=== PATIENT | male | born 1960 | race Caucasian/White ===

== ENCOUNTER 2019-11-08 20:14 | Emergency (ER) | payer OTHER ==
[2019-11-08 20:23] VITALS: BP 142/84; PULSE 88; TEMP 98.3; BMI 37.2
--- NOTE | 2019-11-08 20:41 | PDOC ---
History of Present Illness - General Chief Complaint: Wound Stated Complaint: FOOT WOUND Time Seen by Provider: 11/08/19 20:40 - History of Present Illness Initial Comments: 11/08/19 21:20 59 y/o M hx of HTn, HLD, IDDM,peripheral neuropathy. presents to the ER with a callus on his right foot. He has had it for 3 months and it has been getting larger. Pt has had increased pain with walking or putting weight on his right foot He denies any associated fevers, chills, pus draining from wound. Past History - Past Medical History Allergies/Adverse Reactions: Allergies Allergy/AdvReac Type Severity Reaction Status Date / Time No Known Allergies Allergy Verified 11/08/19 20:23 COPD: No Diabetes: Yes HTN: Yes Hypercholesterolemia: Yes - Psycho Social/Smoking Cessation Hx Smoking History: Never smoked Review of Systems - Review of Systems Constitutional: No: Chills, Fever HEENTM: Yes: Ocular Prothesis. No: Hearing Loss, Throat Pain Respiratory: No: Cough, Shortness of Breath Cardiac (ROS): No: Chest Pain, Lightheadedness ABD/GI: No: Nausea, Vomiting : No: Burning, Dysuria Musculoskeletal: No: Back Pain, Joint Pain Integumentary: No: Flushing, Sweating Neurological: No: Headache, Seizure *Physical Exam - Vital Signs Last Vital Signs Temp Pulse Resp BP Pulse Ox 98.3 F 88 19 142/84 97 11/08/19 20:17 11/08/19 20:17 11/08/19 20:17 11/08/19 20:17 11/08/19 20:17 - Physical Exam 11/08/19 21:18 GENERAL: Awake, alert, and fully oriented, in no acute distress HEAD: No signs of trauma, normocephalic, atraumatic EYES: PERRLA, EOMI, sclera anicteric, conjunctiva clear ENT: Auricles normal inspection, hearing grossly normal, nares patent, oropharynx clear without exudates. Moist mucosa NECK: Normal ROM, supple, no lymphadenopathy, JVD, or masses LUNGS: No distress, speaks full sentences, clear to auscultation bilaterally HEART: Regular rate and rhythm, normal S1 and S2, no murmurs, rubs or gallops, peripheral pulses normal and equal bilaterally. ABDOMEN: Soft, nontender, normoactive bowel sounds. No guarding, no rebound. No masses EXTREMITIES : Normal range of motion, no edema. No clubbing or cyanosis. callus with central hyperpigmentation on bony prominence of 5th metatarsal no blood, pus or other fluid discharge or erythema noted. 1+pulses bilaterally. 2 sec capillary refill. . NEUROLOGICAL: Cranial nerves II through XII grossly intact. Normal speech,no focal sensorimotor deficits SKIN: Warm, Dry, normal turgor, no rashes or lesions noted Medical Decision Making - Medical Decision Making 11/08/19 21:34 59 y/o M hx of HTn, HLD, IDDM,peripheral neuropathy. Pt has been given podiatry referral to address callus PT declined basic labs to check for remote possibility of infection No ulcer/discharge present at the site. can follow up with podiatry outpatient. Discharge - Discharge Information Problems reviewed: Yes Clinical Impression/Diagnosis: Callus of foot Condition: Stable Disposition: HOME - Admission No - Follow up/Referral Referrals: Jose David Patiño MD [Staff Physician] - Sandra Marie DPM [Staff Physician] - Caesar Desai DPM [Staff Physician] - Marsha Tyler DPM [Non Staff, Medical] - - Patient Discharge Instructions Patient Printed Discharge Instructions: DI for Diabetic Foot Ulcer, DI for Calluses and Corns Additional Instructions: You were seen in the ER for a callus on your right foot. you have been given referall information for a psychologist research assistant/foot care Your care is not complete until you do so . It is important that you check your feet daily for redness, sores, or openings. If you develop these signs/symptoms do not self-treat. Please, follow-up with a psychologist research assistant (foot doctor) or your primary care doctor RETURN TO THE ER -if your symptoms today worsen. You develop fevers, chills, callus gets worse and becomes an open wound. - Post Discharge Activity
--- NOTE | 2019-11-08 21:45 | PDOC ---
Documentation entered by Jennifer Grubbs SCRIBE, acting as scribe for Christina Diaz MD. Christina Diaz MD: This documentation has been prepared by the edisonibe, Jennifer Grubbs SCRIBE, under my direction and personally reviewed by me in its entirety. I confirm that the documentation accurately reflects all work, treatment, procedures, and medical decision making performed by me. Attending Attestation - Resident Resident Name: HersonClara - ED Attending Attestation I have performed the following: I have examined & evaluated the patient, The case was reviewed & discussed with the resident, I agree w/resident's findings & plan, Exceptions are as noted - HPI HPI: 11/08/19 21:24 The patient is a 59-year-old male with a past medical history significant for Type 2 DM, HTN, HLD, who presents to the emergency department with a right foot wound. The patient reports a wound to the bottom of the right foot, which has been ongoing for the past 3 months. Denies fever or chills. Denies any drainage from the wound. The patient's daughter brought the patient to the ER for further management and referrals. Allergies: NKA Social history: no reported use of tobacco. PCP: Dr. Cruz Cerna. - Physicial Exam PE: 11/08/19 21:27 GENERAL: Awake, alert and oriented. The patient is in no acute distress. ENT: Ears normal, nares patent, oropharynx clear without exudates. Moist mucous membranes. NECK: Normal range of motion, supple, no nuchal rigidity LUNGS: Breath sounds equal, clear to auscultation bilaterally. No wheezes, and no crackles. HEART: Regular rate and rhythm, normal S1 and S2 without murmur, rub or gallop. ABDOMEN: Soft, nontender, normoactive bowel sounds. No guarding, no rebound. No masses palpable. EXTREMITIES: Foot: Warm, Cap refill <2 sec, 1+DP and 1+PT, Sensation intact, plantar surface of the foot there is 2cm in diameter callus with no sign of infection, no drainage or erythematous skin. NEUROLOGICAL: Answering all questions. Cranial nerves II through XII grossly intact. Normal speech. No focal neurological deficits. SKIN: Warm, Dry, normal turgor, no rashes or lesions noted. - Medical Decision Making 11/08/19 21:32 59-year-old male, history of diabetes presenting to the emergency department with a complaint of callus on the bottom of the right foot the patient has had this for the past 3 months No trauma to the foot Pt denies fevers, chills, drainage Pt daughter brought him to the ER to get a referral No one wants us to send labs, do an xray or call podiatry now They would rather follow up Pt told that he would benefit greatly from shoes with orthotics AND from treatment with a conveyor line battery charger clinical impression: Callus, initial presentation (not acutely infected) Peripheral neuropathy, initial presentation
== END 2019-11-08 21:51 | disposition home or self-care (01) ==
LOC: SUPCPDRO 20:14 → JER 20:14
DX: L84 Corns and callosities (principal); I10 Essential (primary) hypertension; E11.9 Type 2 diabetes mellitus without complications; Z79.4 Long term (current) use of insulin; E78.5 Hyperlipidemia, unspecified; G62.9 Polyneuropathy, unspecified
CPT/HCPCS: 99281-25

== ENCOUNTER 2019-11-10 17:31 | Inpatient (IN) | payer OTHER ==
--- NOTE | 2019-11-10 17:42 | PDOC ---
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
[2019-11-10 18:59] LABS: BASO % 0.5 % (0-2.0); EOS % 0.5 % (0-4.5); HEMATOCRIT 35.7 % (35.4-49); HEMOGLOBIN 11.7 GM/dL (11.7-16.9); LYMPH % 13.6 % (8-40); MCH 28.6 pg (25.7-33.7); MCHC 32.9 g/dl (32.0-35.9); MEAN CELL VOLUME 87.1 fl (80-96); MEAN PLT VOLUME 9.4 fl (7.5-11.1); MONO % 7.4 % (3.8-10.2); PLATELET COUNT 259 K/MM3 (134-434); RBC 4.09 M/mm3 (4.00-5.60); RDW 13.3 % (11.9-15.9); WHITE BLOOD COUNT 12.9 K/mm3 (4.0-10.0)
[2019-11-10 19:38] LABS: ALBUMIN 3.4 g/dl (3.4-5.0); BILIRUBIN,TOTAL 0.8 mg/dL (0.2-1); BLOOD UREA NITROGEN 27.1 mg/dL (7-18); CALCIUM 8.3 mg/dL (8.5-10.1); CREATININE 1.7 mg/dL (0.55-1.3); POTASSIUM 4.4 mmol/L (3.5-5.1)
[2019-11-10] MEDS ORDERED: SODIUM CHLORIDE 3,334 ML IV ONE (19:56)
--- NOTE | 2019-11-10 19:57 | PDOC ---
*Physical Exam - Vital Signs Last Vital Signs Temp Pulse Resp BP Pulse Ox 99.0 F 100 H 16 137/76 97 11/10/19 17:37 11/10/19 17:37 11/10/19 17:37 11/10/19 17:37 11/10/19 17:37 ED Treatment Course - LABORATORY CBC & Chemistry Diagram: 11/10/19 18:14 11/10/19 18:14 - ADDITIONAL ORDERS Additional order review: Laboratory Results 11/10/19 11/10/19 18:14 18:14 Sodium 136 Potassium 4.4 Chloride 102 Carbon Dioxide 25 Anion Gap 8 BUN 27.1 H Creatinine 1.7 H Est GFR (CKD-EPI)AfAm 50.05 Est GFR (CKD-EPI)NonAf 43.18 Random Glucose 323 H Lactic Acid 2.8 H* Calcium 8.3 L Total Bilirubin 0.8 AST 6 L ALT 17 Alkaline Phosphatase 81 Total Protein 7.0 Albumin 3.4 11/10/19 18:14 RBC 4.09 MCV 87.1 MCHC 32.9 RDW 13.3 MPV 9.4 Neutrophils % 78.0 Lymphocytes % 13.6 Monocytes % 7.4 Eosinophils % 0.5 Basophils % 0.5 Medical Decision Making - Medical Decision Making 11/10/19 19:56 Patient seen by the advanced practice provider under my direct supervision. Ancillary testing reviewed as necessary. I agree with plan as outlined by the advanced practice provider. Discharge - Discharge Information Problems reviewed: Yes Clinical Impression/Diagnosis: Diabetic foot infection Condition: Stable - Follow up/Referral - Patient Discharge Instructions - Post Discharge Activity
--- NOTE | 2019-11-10 20:34 | PDOC ---
History of Present Illness - General Chief Complaint: Puncture Wound Stated Complaint: DIABETIC/RIGHT FOOT OPEN WOUND Time Seen by Provider: 11/10/19 17:36 History Source: Patient - History of Present Illness Initial Comments: 11/10/19 20:31 59 year old male right foot wound for the last 3 days worsening. denies fever/ chills, nausea, vomiting, abdominal pain, PMHX: diabetes, hypertension, hypercholesteremia, sepsis PSHX: 11/10/19 20:32 11/10/19 21:34 Past History - Past Medical History Allergies/Adverse Reactions: Allergies Allergy/AdvReac Type Severity Reaction Status Date / Time No Known Allergies Allergy Verified 11/08/19 20:23 Home Medications: Ambulatory Orders Amlodipine Besylate 10 mg PO DAILY 11/11/19 Atorvastatin Ca [Lipitor] 10 mg PO HS 11/11/19 Clopidogrel Bisulfate [Clopidogrel] 75 mg PO DAILY 11/11/19 Lisinopril 20 mg PO DAILY 11/11/19 Metformin HCl [Glucophage] 1,000 mg PO BID 11/11/19 Sitagliptin Phosphate [Januvia] 50 mg PO ONCE 11/11/19 COPD: No Diabetes: Yes HTN: Yes Hypercholesterolemia: Yes - Immunization History Immunization Up to Date: No - Psycho Social/Smoking Cessation Hx Smoking History: Never smoked Have you smoked in the past 12 months: No Information on smoking cessation initiated: No Hx Alcohol Use: No Drug/Substance Use Hx: No Review of Systems - Review of Systems Able to Perform ROS?: Yes Is the patient limited Croatian proficient: No Constitutional: No: Symptoms Reported, See HPI, Chills, Diaphoresis, Fever, Loss of Appetite, Malaise, Night Sweats, Weakness, Weight Stable, Unintentional Wgt. Loss, Unexplained wgt Loss, Other Integumentary: Yes: Other (infection) *Physical Exam - Vital Signs Last Vital Signs Temp Pulse Resp BP Pulse Ox 99.0 F 100 H 16 137/76 97 11/10/19 17:37 11/10/19 17:37 11/10/19 17:37 11/10/19 17:37 11/10/19 17:37 - Physical Exam General Appearance: Yes: Appropriately Dressed Respiratory/Chest: positive: Lungs Clear, Normal Breath Sounds Cardiovascular: positive: Regular Rhythm, Regular Rate Extremity: positive: Normal Capillary Refill, Normal Inspection Integumentary: positive: Warm, Erythema, Other (pus filled pocket to sole of right foot, right foot edema with streaking up the leg. ) ED Treatment Course - LABORATORY CBC & Chemistry Diagram: 11/10/19 18:14 11/10/19 18:14 - ADDITIONAL ORDERS Additional order review: Laboratory Results 11/10/19 11/10/19 18:14 18:14 Sodium 136 Potassium 4.4 Chloride 102 Carbon Dioxide 25 Anion Gap 8 BUN 27.1 H Creatinine 1.7 H Est GFR (CKD-EPI)AfAm 50.05 Est GFR (CKD-EPI)NonAf 43.18 Random Glucose 323 H Lactic Acid 2.8 H* Calcium 8.3 L Total Bilirubin 0.8 AST 6 L ALT 17 Alkaline Phosphatase 81 Total Protein 7.0 Albumin 3.4 11/10/19 18:14 RBC 4.09 MCV 87.1 MCHC 32.9 RDW 13.3 MPV 9.4 Neutrophils % 78.0 Lymphocytes % 13.6 Monocytes % 7.4 Eosinophils % 0.5 Basophils % 0.5 - RADIOLOGY Radiology Studies Ordered: Category Date Time Status CHEST - PA [RAD] Stat Radiology 11/10/19 19:56 Taken ED Progress Note - Progress Note Progress Note: 11/10/19 21:35 A: diabetic foot infection cellulitis and abscess P: xray: perisoteal lifting osteo? official read pending cbc cmp blood culture lactic acid 11/10/19 21:36 zosyn vanc patient signed out to Dr. encarnacion for inpatient management of care Discharge - Discharge Information Problems reviewed: Yes Clinical Impression/Diagnosis: Diabetic foot infection Condition: Stable - Admission Yes - Follow up/Referral - Patient Discharge Instructions - Post Discharge Activity
[2019-11-10] MEDS ORDERED: VANCOMYCIN 1 GM in D5W (PRE-DOCKED) 1,000 MG/250 ML IVPB ONE (21:26)
[2019-11-10] MEDS ORDERED: PIPERACILLIN/TAZOBACTAM 4.5 GM VIAL IVPB ONE (21:26)
[2019-11-10] MEDS ORDERED: ACETAMINOPHEN 1000 MG/100 ML VIAL (NON FORMULARY) IVPB ONE (21:36)
--- NOTE | 2019-11-10 21:40 | HP ---
Admitting History and Physical - Primary Care Physician PCP: Ross Em - Admission Chief Complaint: R foot wound History of Present Illness: 59 year old male right foot wound for the last 3 days worsening. denies fever/ chills, nausea, vomiting, abdominal pain, patient is a known diabetic and hypertensive with hypercholosteremia according tot he patient the wound has not healed and changed in color to black and is fluid filled not bothering him much - Past Medical History Cardiovascular: Yes: Hyperlipdemia Endocrine: Yes: Diabetes Mellitus - Smoking History Smoking history: Never smoked Have you smoked in the past 12 months: No - Alcohol/Substance Use Hx Alcohol Use: No Home Medications - Allergies Allergies/Adverse Reactions: Allergies Allergy/AdvReac Type Severity Reaction Status Date / Time No Known Allergies Allergy Verified 11/08/19 20:23 - Home Medications Home Medications: Ambulatory Orders Amlodipine Besylate 10 mg PO DAILY 11/11/19 Atorvastatin Ca [Lipitor] 10 mg PO HS 11/11/19 Clopidogrel Bisulfate [Clopidogrel] 75 mg PO DAILY 11/11/19 Lisinopril 20 mg PO DAILY 11/11/19 Metformin HCl [Glucophage] 1,000 mg PO BID 11/11/19 Sitagliptin Phosphate [Januvia] 50 mg PO ONCE 11/11/19 Physical Examination Vital Signs: Vital Signs Temperature 99.0 F 11/10/19 17:37 Pulse Rate 100 H 11/10/19 17:37 Respiratory Rate 16 11/10/19 17:37 Blood Pressure 137/76 11/10/19 17:37 O2 Sat by Pulse Oximetry (%) 97 11/10/19 17:37 Constitutional: Yes: No Distress HENT: Yes: Atraumatic Neck: Yes: Supple Cardiovascular: Yes: Regular Rate and Rhythm Respiratory: Yes: CTA Bilaterally Gastrointestinal: Yes: Normal Bowel Sounds Extremities: Yes: Other (R foot wound) Edema: RLE: Trace Neurological: Yes: Alert, Oriented Labs: CBC, BMP 11/10/19 18:14 11/10/19 18:14 Imaging - Results X-ray: Report Reviewed Problem List - Problems (1) Diabetes Assessment/Plan: CONTINUE MEDS BGMS Code(s): E11.9 - TYPE 2 DIABETES MELLITUS WITHOUT COMPLICATIONS (2) Diabetic foot infection Assessment/Plan: iv abx id consult Code(s): E11.628 - TYPE 2 DIABETES MELLITUS WITH OTHER SKIN COMPLICATIONS; L08.9 - LOCAL INFECTION OF THE SKIN AND SUBCUTANEOUS TISSUE, UNSP (3) Callus of foot Code(s): L84 - CORNS AND CALLOSITIES Assessment/Plan Laboratory Tests 11/10/19 11/10/19 11/10/19 18:14 18:14 18:14 WBC 12.9 H RBC 4.09 Hgb 11.7 Hct 35.7 MCV 87.1 MCH 28.6 MCHC 32.9 RDW 13.3 Plt Count 259 MPV 9.4 Absolute Neuts (auto) 10.0 H Neutrophils % 78.0 Lymphocytes % 13.6 Monocytes % 7.4 Eosinophils % 0.5 Basophils % 0.5 Nucleated RBC % 0 Sodium 136 Potassium 4.4 Chloride 102 Carbon Dioxide 25 Anion Gap 8 BUN 27.1 H Creatinine 1.7 H Est GFR (CKD-EPI)AfAm 50.05 Est GFR (CKD-EPI)NonAf 43.18 Random Glucose 323 H Lactic Acid 2.8 H* Calcium 8.3 L Total Bilirubin 0.8 AST 6 L ALT 17 Alkaline Phosphatase 81 Troponin I Cancelled Total Protein 7.0 Albumin 3.4 Active Medications Generic Name Dose Route Start Last Admin Trade Name Freq PRN Reason Stop Dose Admin Sodium Chloride 3,334 mls @ 1,667 mls/hr 11/10/19 19:56 11/10/19 20:00 Normal Saline - 30 ml/kg infuse over 2 hr (3334 ml) 11/10/19 21:55 1,667 mls/hr IV Administration ONCE ONE Active Medications Generic Name Dose Route Start Last Admin Trade Name Freq PRN Reason Stop Dose Admin Acetaminophen 650 mg 11/10/19 21:47 Tylenol - PO Q6H PRN FEVER Heparin Sodium (Porcine) 5,000 unit 11/10/19 22:00 11/11/19 09:41 Heparin - SQ 5,000 unit BID JORGE Administration Vancomycin HCl 1,000 mg in 250 mls @ 200 mls/hr 11/11/19 22:00 Vancomycin (Pre-Docked) IVPB Q24H JORGE Protocol Piperacillin Sod/Tazobactam 50 mls @ 100 mls/hr 11/11/19 13:45 11/11/19 17:50 Sod 3.375 gm/ Dextrose IVPB 100 mls/hr Q8H-IV JORGE Administration Protocol Insulin Aspart 1 vial 11/10/19 22:00 11/11/19 17:57 Novolog Vial Sliding Scale - SQ 6 units ACHS JORGE Administration Protocol
[2019-11-10 21:48] LABS: INR 1.08 (0.83-1.09); PROTHROMBIN TIME (PATIENT) 12.8 SEC (9.7-13.0)
[2019-11-10 21:51] LABS: ACTIVATED PTT 34.5 SECONDS (25.2-36.5)
[2019-11-10] MEDS ORDERED: ACETAMINOPHEN INJECTION 100 ML IVPB ONE ×2 (21:56→22:58)
[2019-11-10] MEDS ORDERED: PIPERACILLIN/TAZOB 4.5 GM 4.5 GM/100 ML BAG IVPB ONE (21:56)
[2019-11-10] MEDS ORDERED: VANCOMYCIN 1 GRAM (PRE-DOCKED) 1,000 MG/250 ML BAG IVPB ONE (21:57)
[2019-11-10] MEDS ORDERED: INSULIN (NOVOLOG MIX 70/30) 100 UNITS/ML MDV SQ ONE (22:58)
[2019-11-10] MEDS ORDERED: HEPARIN NA (PORCINE) 5,000 UNITS/ML 1ML VIAL ONE (22:58)
[2019-11-10] MEDS: INSULIN SLIDING SCALE (NOVOLOG) 1 VIAL SQ SCH (23:07)
[2019-11-10] MEDS: HEPARIN NA (PORCINE) 5,000 UNITS/ML 1ML VIAL SQ SCH (23:48)
[2019-11-11 06:31] LABS: BASO % 0.5 % (0-2.0); EOS % 0.4 % (0-4.5); HEMOGLOBIN 10.8 GM/dL (11.7-16.9); LYMPH % 12.9 % (8-40); MCH 29.1 pg (25.7-33.7); MCHC 33.9 g/dl (32.0-35.9); MEAN CELL VOLUME 86.1 fl (80-96); MONO % 6.6 % (3.8-10.2); NEUT % 79.6 % (42.8-82.8); PLATELET COUNT 220 K/MM3 (134-434); RBC 3.72 M/mm3 (4.00-5.60); RDW 13.3 % (11.9-15.9); WHITE BLOOD COUNT 10.9 K/mm3 (4.0-10.0)
[2019-11-11 06:45] LABS: BILIRUBIN,TOTAL 0.6 mg/dL (0.2-1); BLOOD UREA NITROGEN 24.3 mg/dL (7-18); CREATININE 1.4 mg/dL (0.55-1.3); POTASSIUM 4.2 mmol/L (3.5-5.1); TOT PROT 6.4 g/dl (6.4-8.2)
[2019-11-11] MEDS: INSULIN SLIDING SCALE (NOVOLOG) 1 VIAL SQ SCH ×4 (09:35→21:45)
[2019-11-11] MEDS: HEPARIN NA (PORCINE) 5,000 UNITS/ML 1ML VIAL SQ SCH ×2 (09:41→21:45)
--- NOTE | 2019-11-11 11:59 | EKG ---
Test Reason : Blood Pressure : / mmHG Vent. Rate : 091 BPM Atrial Rate : 091 BPM P-R Int : 202 ms QRS Dur : 110 ms QT Int : 338 ms P-R-T Axes : 019 032 036 degrees QTc Int : 415 ms NORMAL SINUS RHYTHM SEPTAL INFARCT , AGE UNDETERMINED ABNORMAL ECG Confirmed by MD COLE, PONCE ([id number]) on 11/11/2019 11:59:05 AM Referred By: Confirmed By:PONCE GALVAN MD
--- NOTE | 2019-11-11 13:34 | CON.ID ---
Consult Consult Specialty:: infectious diseases Referred by:: Reason for Consultation:: foot wound,with collection,discoloration - History of Present Illness Chief Complaint: wound of the leg History of Present Illness: 59 year old male right foot wound for the last 3 days worsening. denies fever/ chills, nausea, vomiting, abdominal pain, patient is a known diabetic and hypertensive with hypercholosteremia according tot he patient the wound has not healed and changed in color to black and is fluid filled not bothering him much - History Source History Provided By: Patient Limitations to Obtaining History: No Limitations - Past Medical History Endocrine: Yes: Diabetes Mellitus - Alcohol/Substance Use Hx Alcohol Use: No - Smoking History Smoking history: Never smoked Have you smoked in the past 12 months: No Home Medications - Allergies Allergies/Adverse Reactions: Allergies Allergy/AdvReac Type Severity Reaction Status Date / Time No Known Allergies Allergy Verified 11/08/19 20:23 - Home Medications Home Medications: Ambulatory Orders Amlodipine Besylate 10 mg PO DAILY 11/11/19 Atorvastatin Ca [Lipitor] 10 mg PO HS 11/11/19 Clopidogrel Bisulfate [Clopidogrel] 75 mg PO DAILY 11/11/19 Lisinopril 20 mg PO DAILY 11/11/19 Metformin HCl [Glucophage] 1,000 mg PO BID 11/11/19 Sitagliptin Phosphate [Januvia] 50 mg PO ONCE 11/11/19 Review of Systems - Review of Systems Constitutional: reports: No Symptoms Eyes: reports: No Symptoms HENT: reports: No Symptoms Neck: reports: No Symptoms Cardiovascular: reports: No Symptoms Respiratory: reports: No Symptoms Gastrointestinal: reports: No Symptoms Genitourinary: reports: No Symptoms Musculoskeletal: reports: No Symptoms Integumentary: reports: Wound, Other Neurological: reports: No Symptoms Endocrine: reports: No Symptoms Hematology/Lymphatic: reports: No Symptoms Psychiatric: reports: No Symptoms Physical Exam Vital Signs: Vital Signs Temperature 99.5 F 11/11/19 07:11 Pulse Rate 87 11/11/19 07:11 Respiratory Rate 11/11/19 07:11 Blood Pressure 123/63 11/11/19 07:11 O2 Sat by Pulse Oximetry (%) 96 11/11/19 07:11 Constitutional: Yes: Well Nourished, No Distress, Calm HENT: Yes: Atraumatic, Normocephalic Neck: Yes: Supple, Trachea Midline Cardiovascular: Yes: Regular Rate and Rhythm Respiratory: Yes: Regular, CTA Bilaterally Gastrointestinal: Yes: Normal Bowel Sounds, Soft Musculoskeletal: Yes: WNL Extremities: Yes: Other Wound/Incision: Yes: Open to air, Other (fluid filled wound of the rt leg) Neurological: Yes: Alert, Oriented Psychiatric: Yes: Alert, Oriented Labs: CBC, BMP 11/11/19 05:30 11/11/19 05:30 Imaging - Results Chest X-ray: Report Reviewed, Image Reviewed X-ray: Report Reviewed, Image Reviewed Assessment/Plan this patient with multiple medical problems coming in wiht diabetic foot infection probably will eed to go to the or i am starting the patient on broad spectrum abx await for podiatry to see the patient rest monitor patient closely
[2019-11-11] MEDS: PIPERACILLIN/TAZOB 3.375 GM 3.375 GM in DEXTROSE 5%-WATER - 50 ML IVPB SCH ×2 (14:30→17:50)
[2019-11-11] MEDS ORDERED: PIPERACILLIN/TAZOB 3.375 GM 3.375 GM/50 ML BAG IVPB ONE (14:31)
[2019-11-11 16:29] VITALS: BMI 34.5
[2019-11-11] MEDS ORDERED: PIPERACILLIN/TAZOBACTAM 3.375 GM VIAL IVPB ONE (17:11)
[2019-11-11] MEDS ORDERED: DEXTROSE 5%-WATER - 50 ML IVPB ONE (17:12)
[2019-11-11] MEDS ORDERED: INSULIN (NOVOLOG) ASPART 100 UNITS/ML 10ML VIAL ONE (17:55)
--- NOTE | 2019-11-11 17:58 | PN ---
Progress Note, Physician - Current Medication List Current Medications: Active Medications Acetaminophen (Tylenol -) 650 mg PO Q6H PRN PRN Reason: FEVER Heparin Sodium (Porcine) (Heparin -) 5,000 unit SQ BID [facility] Last Admin: 11/11/19 09:41 Dose: 5,000 unit Vancomycin HCl (Vancomycin (Pre-Docked)) 1,000 mg in 250 mls @ 200 mls/hr IVPB Q24H JORGE; Protocol Piperacillin Sod/Tazobactam (Sod 3.375 gm/ Dextrose) 50 mls @ 100 mls/hr IVPB Q8H-IV JORGE; Protocol Last Admin: 11/11/19 17:50 Dose: 100 mls/hr Insulin Aspart (Novolog Vial Sliding Scale -) 1 vial SQ ACHS [facility]; Protocol Last Admin: 11/11/19 11:31 Dose: 6 units - Objective Vital Signs: Vital Signs Temperature 96.8 F L 11/11/19 15:15 Pulse Rate 84 11/11/19 15:15 Respiratory Rate 18 11/11/19 15:15 Blood Pressure 135/65 11/11/19 15:15 O2 Sat by Pulse Oximetry (%) 94 L 11/11/19 15:15 Constitutional: Yes: No Distress HENT: Yes: Atraumatic Neck: Yes: Supple Cardiovascular: Yes: Regular Rate and Rhythm Respiratory: Yes: CTA Bilaterally Gastrointestinal: Yes: Normal Bowel Sounds Extremities: Yes: Other (R foot cellulitis) Neurological: Yes: Alert, Oriented Labs: CBC, BMP 11/11/19 05:30 11/11/19 05:30 INR, PTT INR 1.08 (0.83-1.09) 11/10/19 21:00 Problem List - Problems (1) Diabetes Assessment/Plan: CONTINUE MEDS BGMS Code(s): E11.9 - TYPE 2 DIABETES MELLITUS WITHOUT COMPLICATIONS (2) Diabetic foot infection Assessment/Plan: iv bax id consult Code(s): E11.628 - TYPE 2 DIABETES MELLITUS WITH OTHER SKIN COMPLICATIONS; L08.9 - LOCAL INFECTION OF THE SKIN AND SUBCUTANEOUS TISSUE, UNSP (3) Callus of foot Code(s): L84 - CORNS AND CALLOSITIES
[2019-11-11] MEDS: VANCOMYCIN 1 GRAM (PRE-DOCKED) 1,000 MG/250 ML BAG IVPB SCH (21:47)
--- NOTE | 2019-11-11 23:07 | CONS ---
DATE OF CONSULTATION: DATE OF DICTATION: 11/11/2019 HISTORY OF PRESENT ILLNESS: The patient is a 59-year-old male admitted via the emergency room on November 10, 2019, with an infected right foot wound. Patient also has history of diabetes. He denies any allergies, ethanolism, or tobacco use. He presently is on Lipitor, Norvasc, Plavix, lisinopril, metformin, and Januvia. PHYSICAL EXAMINATION: Vital signs: Temperature was 99, his blood pressure was 137/76. Abdomen: Soft. No CVA tenderness. Extremities: Reveal right lower extremity cellulitis. There was some trace edema from right lower extremity. LABORATORY: His white count is 12.9. His hemoglobin and hematocrit is 11.7 over 35.7. BUN and creatinine on admission were 27 over 1.7. An ultrasound of his kidneys and bladder revealed bilateral solid renal masses. There was also an enlarged prostate with a significant amount of post void residual. Solid masses are suspicious for neoplasm. RECOMMENDATION: Will recommend a CT with and without contrast to see enhancement. Will follow with you. CHASITY CHARLES M.D. [id number]
[2019-11-11] MEDS: ACETAMINOPHEN 325 MG TABLET (FP) PO PRN (23:15)
[2019-11-12] MEDS ORDERED: DEXTROSE 5%-WATER - 50 ML IVPB ONE ×3 (01:32→17:13)
[2019-11-12] MEDS ORDERED: PIPERACILLIN/TAZOBACTAM 3.375 GM VIAL IVPB ONE ×3 (01:32→17:13)
[2019-11-12] MEDS: PIPERACILLIN/TAZOB 3.375 GM 3.375 GM in DEXTROSE 5%-WATER - 50 ML IVPB SCH ×3 (01:37→17:18)
[2019-11-12] MEDS: INSULIN SLIDING SCALE (NOVOLOG) 1 VIAL SQ SCH ×4 (06:17→23:02)
--- NOTE | 2019-11-12 09:59 | PN ---
Progress Note, Physician History of Present Illness: clinically stable podiatry to see the patient no complaints - Current Medication List Current Medications: Active Medications Acetaminophen (Tylenol -) 650 mg PO Q6H PRN PRN Reason: FEVER Last Admin: 11/11/19 23:15 Dose: 650 mg Heparin Sodium (Porcine) (Heparin -) 5,000 unit SQ BID [facility] Last Admin: 11/11/19 21:45 Dose: 5,000 unit Vancomycin HCl (Vancomycin (Pre-Docked)) 1,000 mg in 250 mls @ 200 mls/hr IVPB Q24H [facility]; Protocol Last Admin: 11/11/19 21:47 Dose: 200 mls/hr Piperacillin Sod/Tazobactam (Sod 3.375 gm/ Dextrose) 50 mls @ 100 mls/hr IVPB Q8H-IV [facility]; Protocol Last Admin: 11/12/19 01:37 Dose: 100 mls/hr Insulin Aspart (Novolog Vial Sliding Scale -) 1 vial SQ ACHS [facility]; Protocol Last Admin: 11/12/19 06:17 Dose: 6 units - Objective Vital Signs: Vital Signs Temperature 98 F 11/12/19 05:50 Pulse Rate 82 11/12/19 05:50 Respiratory Rate 18 11/12/19 05:50 Blood Pressure 134/76 11/12/19 05:50 O2 Sat by Pulse Oximetry (%) 94 L 11/11/19 21:00 Constitutional: Yes: No Distress, Calm Cardiovascular: Yes: S1, S2 Respiratory: Yes: Regular, CTA Bilaterally Gastrointestinal: Yes: Normal Bowel Sounds, Soft Musculoskeletal: Yes: WNL Extremities: Yes: Other Integumentary: Yes: Other Wound/Incision: Yes: Open to air, Other (fluid collection) Neurological: Yes: Alert, Oriented Psychiatric: Yes: Alert, Oriented Labs: CBC, BMP 11/11/19 05:30 11/11/19 05:30 INR, PTT INR 1.08 (0.83-1.09) 11/10/19 21:00 Assessment/Plan Problem List - Problems (1) Diabetes Code(s): E11.9 - TYPE 2 DIABETES MELLITUS WITHOUT COMPLICATIONS (2) Diabetic foot infection Code(s): E11.628 - TYPE 2 DIABETES MELLITUS WITH OTHER SKIN COMPLICATIONS; L08.9 - LOCAL INFECTION OF THE SKIN AND SUBCUTANEOUS TISSUE, UNSP (3) Callus of foot Code(s): L84 - CORNS AND CALLOSITIES r/o gangrene blister plan await for podiatry continue abx rest as per the team
[2019-11-12] MEDS: HEPARIN NA (PORCINE) 5,000 UNITS/ML 1ML VIAL SQ SCH ×2 (10:33→23:02)
[2019-11-12] MEDS ORDERED: INSULIN (NOVOLOG) ASPART 100 UNITS/ML 10ML VIAL ONE ×2 (12:06→22:57)
--- NOTE | 2019-11-12 13:28 | PN ---
Progress Note, Physician - Current Medication List Current Medications: Active Medications Acetaminophen (Tylenol -) 650 mg PO Q6H PRN PRN Reason: FEVER Last Admin: 11/11/19 23:15 Dose: 650 mg Heparin Sodium (Porcine) (Heparin -) 5,000 unit SQ BID [facility] Last Admin: 11/12/19 10:33 Dose: 5,000 unit Vancomycin HCl (Vancomycin (Pre-Docked)) 1,000 mg in 250 mls @ 200 mls/hr IVPB Q24H [facility]; Protocol Last Admin: 11/11/19 21:47 Dose: 200 mls/hr Piperacillin Sod/Tazobactam (Sod 3.375 gm/ Dextrose) 50 mls @ 100 mls/hr IVPB Q8H-IV [facility]; Protocol Last Admin: 11/12/19 10:33 Dose: 100 mls/hr Insulin Aspart (Novolog Vial Sliding Scale -) 1 vial SQ ACHS [facility]; Protocol Last Admin: 11/12/19 12:09 Dose: 8 units - Objective Vital Signs: Vital Signs Temperature 98.4 F 11/12/19 10:00 Pulse Rate 94 H 11/12/19 10:00 Respiratory Rate 18 11/12/19 10:00 Blood Pressure 143/63 11/12/19 10:00 O2 Sat by Pulse Oximetry (%) 94 L 11/11/19 21:00 Constitutional: Yes: No Distress HENT: Yes: Atraumatic Neck: Yes: Supple Cardiovascular: Yes: Regular Rate and Rhythm Respiratory: Yes: CTA Bilaterally Gastrointestinal: Yes: Normal Bowel Sounds Extremities: Yes: Other (R foot cellulitis) Neurological: Yes: Alert, Oriented Labs: CBC, BMP 11/11/19 05:30 11/11/19 05:30 INR, PTT INR 1.08 (0.83-1.09) 11/10/19 21:00 Problem List - Problems (1) Diabetes Assessment/Plan: CONTINUE MEDS BGMS Code(s): E11.9 - TYPE 2 DIABETES MELLITUS WITHOUT COMPLICATIONS (2) Diabetic foot infection Assessment/Plan: iv bax id consult Code(s): E11.628 - TYPE 2 DIABETES MELLITUS WITH OTHER SKIN COMPLICATIONS; L08.9 - LOCAL INFECTION OF THE SKIN AND SUBCUTANEOUS TISSUE, UNSP (3) Callus of foot Code(s): L84 - CORNS AND CALLOSITIES
--- NOTE | 2019-11-12 19:04 | CONSULT ---
Consult Consult Specialty:: Podiatric Surgery Reason for Consultation:: Abscess right plantar foot, with chronic wound. - Past Medical History Endocrine: Yes: Diabetes Mellitus - Alcohol/Substance Use Hx Alcohol Use: No - Smoking History Smoking history: Never smoked Have you smoked in the past 12 months: No Home Medications - Allergies Allergies/Adverse Reactions: Allergies Allergy/AdvReac Type Severity Reaction Status Date / Time No Known Allergies Allergy Verified 11/08/19 20:23 - Home Medications Home Medications: Ambulatory Orders Amlodipine Besylate 10 mg PO DAILY 11/11/19 Atorvastatin Ca [Lipitor] 10 mg PO HS 11/11/19 Clopidogrel Bisulfate [Clopidogrel] 75 mg PO DAILY 11/11/19 Lisinopril 20 mg PO DAILY 11/11/19 Metformin HCl [Glucophage] 1,000 mg PO BID 11/11/19 Sitagliptin Phosphate [Januvia] 50 mg PO ONCE 11/11/19 Physical Exam Vital Signs: Vital Signs Temperature 98.6 F 11/12/19 18:30 Pulse Rate 83 11/12/19 18:30 Respiratory Rate 18 11/12/19 18:30 Blood Pressure 137/75 11/12/19 18:30 O2 Sat by Pulse Oximetry (%) 94 L 11/12/19 09:00 Extremities: Yes: Other (+abscess plantar forefoot, +tender, +fluctuant, +mal odor, +cellulitis) Labs: CBC, BMP 11/11/19 05:30 11/11/19 05:30 Assessment/Plan abscess cellulitis om? Pt seen in bed and consented for incision and drainage bedside under sterile technique. Foot was prepped with betadine. Utilizing a 20 gauge spinal needle on a 20cc syringe abscess was drained and unroofed. Drainage was cultured. Unroofed skin was sent to pathology. Irrigated with betadine and saline. Betadine dressing applied. Pt tolerated the procedure well. Complete bed rest 24 hours. MRI to r/o om.
[2019-11-12 21:50] LABS: BASO % 0.5 % (0-2.0); EOS % 0.7 % (0-4.5); HEMATOCRIT 33.6 % (35.4-49); HEMOGLOBIN 11.4 GM/dL (11.7-16.9); LYMPH % 14.3 % (8-40); MCHC 33.8 g/dl (32.0-35.9); MEAN CELL VOLUME 85.7 fl (80-96); MEAN PLT VOLUME 9.1 fl (7.5-11.1); MONO % 7.3 % (3.8-10.2); NEUT % 77.2 % (42.8-82.8); PLATELET COUNT 292 K/MM3 (134-434); RBC 3.93 M/mm3 (4.00-5.60); RDW 13.2 % (11.9-15.9); WHITE BLOOD COUNT 10.3 K/mm3 (4.0-10.0)
[2019-11-12] MEDS: VANCOMYCIN 1 GRAM (PRE-DOCKED) 1,000 MG/250 ML BAG IVPB SCH (23:01)
[2019-11-13] MEDS ORDERED: PIPERACILLIN/TAZOBACTAM 3.375 GM VIAL IVPB ONE ×3 (01:26→17:03)
[2019-11-13] MEDS ORDERED: DEXTROSE 5%-WATER - 50 ML IVPB ONE ×3 (01:26→17:03)
[2019-11-13] MEDS: PIPERACILLIN/TAZOB 3.375 GM 3.375 GM in DEXTROSE 5%-WATER - 50 ML IVPB SCH ×3 (01:29→17:07)
[2019-11-13] MEDS: INSULIN SLIDING SCALE (NOVOLOG) 1 VIAL SQ SCH ×4 (06:16→21:05)
[2019-11-13] MEDS ORDERED: INSULIN (LEVEMIR) 100 UNITS/ML UNITS SQ ONE (06:27)
[2019-11-13] MEDS ORDERED: INSULIN (NOVOLOG) ASPART 100 UNITS/ML 10ML VIAL ONE ×2 (06:27→20:38)
[2019-11-13 07:54] LABS: BLOOD UREA NITROGEN 21.1 mg/dL (7-18); CREATININE 1.4 mg/dL (0.55-1.3); POTASSIUM 4.5 mmol/L (3.5-5.1)
[2019-11-13] MEDS: HEPARIN NA (PORCINE) 5,000 UNITS/ML 1ML VIAL SQ SCH ×2 (10:32→21:01)
--- NOTE | 2019-11-13 11:45 | PN ---
Progress Note, Physician History of Present Illness: stable operated yesterday - Current Medication List Current Medications: Active Medications Acetaminophen (Tylenol -) 650 mg PO Q6H PRN PRN Reason: FEVER Last Admin: 11/11/19 23:15 Dose: 650 mg Heparin Sodium (Porcine) (Heparin -) 5,000 unit SQ BID [facility] Last Admin: 11/13/19 10:32 Dose: 5,000 unit Vancomycin HCl (Vancomycin (Pre-Docked)) 1,000 mg in 250 mls @ 200 mls/hr IVPB Q24H [facility]; Protocol Last Admin: 11/12/19 23:01 Dose: 200 mls/hr Piperacillin Sod/Tazobactam (Sod 3.375 gm/ Dextrose) 50 mls @ 100 mls/hr IVPB Q8H-IV [facility]; Protocol Last Admin: 11/13/19 10:32 Dose: 100 mls/hr Insulin Aspart (Novolog Vial Sliding Scale -) 1 vial SQ ACHS [facility]; Protocol Last Admin: 11/13/19 11:18 Dose: 10 units - Objective Vital Signs: Vital Signs Temperature 98.5 F 11/13/19 09:49 Pulse Rate 94 H 11/13/19 09:49 Respiratory Rate 11/13/19 09:49 Blood Pressure 146/81 11/13/19 09:49 O2 Sat by Pulse Oximetry (%) 95 11/13/19 09:00 Constitutional: Yes: No Distress, Calm Cardiovascular: Yes: S1, S2 Respiratory: Yes: Regular, CTA Bilaterally Gastrointestinal: Yes: Normal Bowel Sounds, Soft Musculoskeletal: Yes: WNL Extremities: Yes: Other Integumentary: Yes: Other Wound/Incision: Yes: Dressing Dry and Intact Neurological: Yes: Alert, Oriented Labs: CBC, BMP 11/12/19 21:00 11/13/19 06:00 INR, PTT INR 1.08 (0.83-1.09) 11/10/19 21:00 Assessment/Plan Problem List - Problems (1) Diabetes Code(s): E11.9 - TYPE 2 DIABETES MELLITUS WITHOUT COMPLICATIONS (2) Diabetic foot infection Code(s): E11.628 - TYPE 2 DIABETES MELLITUS WITH OTHER SKIN COMPLICATIONS; L08.9 - LOCAL INFECTION OF THE SKIN AND SUBCUTANEOUS TISSUE, UNSP (3) Callus of foot Code(s): L84 - CORNS AND CALLOSITIES r/o gangrene blister plan continue abx await for cx report rest as per the team
--- NOTE | 2019-11-13 15:30 | PN ---
Progress Note, Physician Chief Complaint: fuv right foot - Current Medication List Current Medications: Active Medications Acetaminophen (Tylenol -) 650 mg PO Q6H PRN PRN Reason: FEVER Last Admin: 11/11/19 23:15 Dose: 650 mg Heparin Sodium (Porcine) (Heparin -) 5,000 unit SQ BID [facility] Last Admin: 11/13/19 10:32 Dose: 5,000 unit Vancomycin HCl (Vancomycin (Pre-Docked)) 1,000 mg in 250 mls @ 200 mls/hr IVPB Q24H [facility]; Protocol Last Admin: 11/12/19 23:01 Dose: 200 mls/hr Piperacillin Sod/Tazobactam (Sod 3.375 gm/ Dextrose) 50 mls @ 100 mls/hr IVPB Q8H-IV [facility]; Protocol Last Admin: 11/13/19 10:32 Dose: 100 mls/hr Insulin Aspart (Novolog Vial Sliding Scale -) 1 vial SQ ACHS [facility]; Protocol Last Admin: 11/13/19 11:18 Dose: 10 units - Objective Vital Signs: Vital Signs Temperature 99.9 F H 11/13/19 13:40 Pulse Rate 99 H 11/13/19 13:40 Respiratory Rate 20 11/13/19 13:40 Blood Pressure 125/77 11/13/19 13:40 O2 Sat by Pulse Oximetry (%) 95 11/13/19 09:00 Extremities: Yes: Other (+cellulitis right foot improving, +granulating plantar wound, -mal odor, -om on mri) Labs: CBC, BMP 11/12/19 21:00 11/13/19 06:00 INR, PTT INR 1.08 (0.83-1.09) 11/10/19 21:00 Assessment/Plan cellulitis improving Betadine dressing change done. Abx as per ID. Mixed bacteria from culture. will follow.
--- NOTE | 2019-11-13 16:58 | PN ---
Progress Note, Physician - Current Medication List Current Medications: Active Medications Acetaminophen (Tylenol -) 650 mg PO Q6H PRN PRN Reason: FEVER Last Admin: 11/11/19 23:15 Dose: 650 mg Amlodipine Besylate (Norvasc -) 10 mg PO DAILY [facility] Atorvastatin Calcium (Lipitor -) 10 mg PO HS [facility] Clopidogrel Bisulfate (Plavix -) 75 mg PO DAILY [facility] Heparin Sodium (Porcine) (Heparin -) 5,000 unit SQ BID [facility] Last Admin: 11/13/19 10:32 Dose: 5,000 unit Vancomycin HCl (Vancomycin (Pre-Docked)) 1,000 mg in 250 mls @ 200 mls/hr IVPB Q24H [facility]; Protocol Last Admin: 11/12/19 23:01 Dose: 200 mls/hr Piperacillin Sod/Tazobactam (Sod 3.375 gm/ Dextrose) 50 mls @ 100 mls/hr IVPB Q8H-IV [facility]; Protocol Last Admin: 11/13/19 10:32 Dose: 100 mls/hr Insulin Aspart (Novolog Vial Sliding Scale -) 1 vial SQ ACHS [facility]; Protocol Last Admin: 11/13/19 11:18 Dose: 10 units Lisinopril (Prinivil) 20 mg PO DAILY [facility] Non-Formulary Medication (Metformin Hcl [Glucophage]) 1,000 mg PO BID [facility] Sitagliptin Phosphate (Januvia -) 50 mg PO ONCE [facility] - Objective Vital Signs: Vital Signs Temperature 99.9 F H 11/13/19 13:40 Pulse Rate 99 H 11/13/19 13:40 Respiratory Rate 20 11/13/19 13:40 Blood Pressure 125/77 11/13/19 13:40 O2 Sat by Pulse Oximetry (%) 95 11/13/19 09:00 Constitutional: Yes: No Distress HENT: Yes: Atraumatic Neck: Yes: Supple Cardiovascular: Yes: Regular Rate and Rhythm Respiratory: Yes: CTA Bilaterally Gastrointestinal: Yes: Normal Bowel Sounds Extremities: Yes: Other (R foot infection) Neurological: Yes: Alert, Oriented Labs: CBC, BMP 11/12/19 21:00 11/13/19 06:00 INR, PTT INR 1.08 (0.83-1.09) 11/10/19 21:00 Problem List - Problems (1) Diabetes Assessment/Plan: CONTINUE MEDS BGMS Code(s): E11.9 - TYPE 2 DIABETES MELLITUS WITHOUT COMPLICATIONS (2) Diabetic foot infection Assessment/Plan: iv bax id consult wound care dressing change daily Code(s): E11.628 - TYPE 2 DIABETES MELLITUS WITH OTHER SKIN COMPLICATIONS; L08.9 - LOCAL INFECTION OF THE SKIN AND SUBCUTANEOUS TISSUE, UNSP (3) Callus of foot Code(s): L84 - CORNS AND CALLOSITIES
[2019-11-13] MEDS ORDERED: sitaGLIPtin PHOSPHATE 50 MG TABLET PO ONE (17:00)
[2019-11-13] MEDS: CLOPIDOGREL BISULFATE 75 MG TABLET (FP) PO SCH (17:07)
[2019-11-13] MEDS: amLODIPine BESYLATE 10 MG TABLET (FP) PO SCH (17:07)
[2019-11-13] MEDS: LISINOPRIL 20 MG TABLET (FP) PO SCH (17:07)
[2019-11-13] MEDS: metFORMIN HCL 500 MG TABLET (FP) PO SCH (17:12)
[2019-11-13] MEDS: VANCOMYCIN 1 GRAM (PRE-DOCKED) 1,000 MG/250 ML BAG IVPB SCH (21:00)
[2019-11-13] MEDS: ATORVASTATIN CA 10 MG TABLET (FP) PO SCH (21:01)
[2019-11-14] MEDS ORDERED: DEXTROSE 5%-WATER - 50 ML IVPB ONE ×3 (00:52→16:43)
[2019-11-14] MEDS ORDERED: PIPERACILLIN/TAZOBACTAM 3.375 GM VIAL IVPB ONE ×3 (00:52→16:43)
[2019-11-14] MEDS: PIPERACILLIN/TAZOB 3.375 GM 3.375 GM in DEXTROSE 5%-WATER - 50 ML IVPB SCH ×3 (01:06→17:17)
[2019-11-14] MEDS ORDERED: POLYETHYLENE GLYCOL 3350 119 GM BTL PO ONE (06:00)
[2019-11-14] MEDS: metFORMIN HCL 500 MG TABLET (FP) PO SCH ×2 (06:17→16:32)
[2019-11-14] MEDS ORDERED: PT OWN MED DRAWER 7, Y5N ONE (06:19)
[2019-11-14] MEDS: INSULIN SLIDING SCALE (NOVOLOG) 1 VIAL SQ SCH ×4 (06:26→21:23)
[2019-11-14] MEDS: LISINOPRIL 20 MG TABLET (FP) PO SCH (09:57)
[2019-11-14] MEDS: CLOPIDOGREL BISULFATE 75 MG TABLET (FP) PO SCH (09:57)
[2019-11-14] MEDS: amLODIPine BESYLATE 10 MG TABLET (FP) PO SCH (09:57)
[2019-11-14] MEDS: POLYETHYLENE GLYCOL 3350 119 GM BTL PO SCH (09:58)
[2019-11-14] MEDS: HEPARIN NA (PORCINE) 5,000 UNITS/ML 1ML VIAL SQ SCH ×2 (09:58→21:23)
--- NOTE | 2019-11-14 10:23 | PN ---
Progress Note, Physician History of Present Illness: doing well no issues cx with multiple organisms awaiting for identification - Current Medication List Current Medications: Active Medications Acetaminophen (Tylenol -) 650 mg PO Q6H PRN PRN Reason: FEVER Last Admin: 11/11/19 23:15 Dose: 650 mg Amlodipine Besylate (Norvasc -) 10 mg PO DAILY [facility] Last Admin: 11/14/19 09:57 Dose: 10 mg Atorvastatin Calcium (Lipitor -) 10 mg PO HS [facility] Last Admin: 11/13/19 21:01 Dose: 10 mg Clopidogrel Bisulfate (Plavix -) 75 mg PO DAILY [facility] Last Admin: 11/14/19 09:57 Dose: 75 mg Heparin Sodium (Porcine) (Heparin -) 5,000 unit SQ BID [facility] Last Admin: 11/14/19 09:58 Dose: 5,000 unit Vancomycin HCl (Vancomycin (Pre-Docked)) 1,000 mg in 250 mls @ 200 mls/hr IVPB Q24H [facility]; Protocol Last Admin: 11/13/19 21:00 Dose: 200 mls/hr Piperacillin Sod/Tazobactam (Sod 3.375 gm/ Dextrose) 50 mls @ 100 mls/hr IVPB Q8H-IV [facility]; Protocol Last Admin: 11/14/19 09:57 Dose: 100 mls/hr Insulin Aspart (Novolog Vial Sliding Scale -) 1 vial SQ ACHS [facility]; Protocol Last Admin: 11/14/19 06:26 Dose: 8 units Lisinopril (Prinivil) 20 mg PO DAILY [facility] Last Admin: 11/14/19 09:57 Dose: 20 mg Metformin HCl (Glucophage -) 1,000 mg PO BIDAC [facility] Last Admin: 11/14/19 06:17 Dose: 1,000 mg Polyethylene Glycol (Miralax (For Daily Use) -) 17 gm PO DAILY [facility] Last Admin: 11/14/19 09:58 Dose: Not Given - Objective Vital Signs: Vital Signs Temperature 99.1 F 11/14/19 08:47 Pulse Rate 98 H 11/14/19 08:47 Respiratory Rate 18 11/14/19 08:47 Blood Pressure 119/69 11/14/19 08:47 O2 Sat by Pulse Oximetry (%) 96 11/13/19 21:00 Constitutional: Yes: No Distress, Calm Cardiovascular: Yes: S1, S2 Respiratory: Yes: Regular, CTA Bilaterally Gastrointestinal: Yes: Normal Bowel Sounds, Soft Musculoskeletal: Yes: WNL Extremities: Yes: Other Wound/Incision: Yes: Dressing Dry and Intact Neurological: Yes: Alert, Oriented Psychiatric: Yes: Alert, Oriented Labs: CBC, BMP 11/12/19 21:00 11/13/19 06:00 INR, PTT INR 1.08 (0.83-1.09) 11/10/19 21:00 Assessment/Plan Problem List - Problems (1) Diabetes Code(s): E11.9 - TYPE 2 DIABETES MELLITUS WITHOUT COMPLICATIONS (2) Diabetic foot infection Code(s): E11.628 - TYPE 2 DIABETES MELLITUS WITH OTHER SKIN COMPLICATIONS; L08.9 - LOCAL INFECTION OF THE SKIN AND SUBCUTANEOUS TISSUE, UNSP (3) Callus of foot Code(s): L84 - CORNS AND CALLOSITIES r/o gangrene blister plan continue abx await for cx report rest as per the team will stop katherin
--- NOTE | 2019-11-14 10:53 | PN ---
Progress Note (short form) - Note Progress Note: fuv right foot +resolving cellulitis, +granulating plantar wound right, -drainage, -mal odor, resolving cellulitis grade 2 wound sub right foot dc betadine dressing. change to santyl daily. cbc with diff. will follow.
[2019-11-14] MEDS: COLLAGENASE CLOSTRIDIUM HIST. 30 GRAMS TUBE TP SCH (11:30)
[2019-11-14] MEDS ORDERED: INSULIN (NOVOLOG) ASPART 100 UNITS/ML 10ML VIAL ONE (18:36)
--- NOTE | 2019-11-14 19:38 | PN ---
Progress Note, Physician - Current Medication List Current Medications: Active Medications Acetaminophen (Tylenol -) 650 mg PO Q6H PRN PRN Reason: FEVER Last Admin: 11/11/19 23:15 Dose: 650 mg Amlodipine Besylate (Norvasc -) 10 mg PO DAILY [facility] Last Admin: 11/14/19 09:57 Dose: 10 mg Atorvastatin Calcium (Lipitor -) 10 mg PO HS [facility] Last Admin: 11/13/19 21:01 Dose: 10 mg Clopidogrel Bisulfate (Plavix -) 75 mg PO DAILY [facility] Last Admin: 11/14/19 09:57 Dose: 75 mg Collagenase (Santyl -) 1 applic TP DAILY [facility]; Protocol Last Admin: 11/14/19 11:30 Dose: 1 applic Heparin Sodium (Porcine) (Heparin -) 5,000 unit SQ BID [facility] Last Admin: 11/14/19 09:58 Dose: 5,000 unit Piperacillin Sod/Tazobactam (Sod 3.375 gm/ Dextrose) 50 mls @ 100 mls/hr IVPB Q8H-IV [facility]; Protocol Last Admin: 11/14/19 17:17 Dose: 100 mls/hr Insulin Aspart (Novolog Vial Sliding Scale -) 1 vial SQ ACHS [facility]; Protocol Last Admin: 11/14/19 16:32 Dose: 8 units Lisinopril (Prinivil) 20 mg PO DAILY [facility] Last Admin: 11/14/19 09:57 Dose: 20 mg Metformin HCl (Glucophage -) 1,000 mg PO BIDAC [facility] Last Admin: 11/14/19 16:32 Dose: 1,000 mg Polyethylene Glycol (Miralax (For Daily Use) -) 17 gm PO DAILY [facility] Last Admin: 11/14/19 09:58 Dose: Not Given - Objective Vital Signs: Vital Signs Temperature 98.3 F 11/14/19 18:57 Pulse Rate 83 11/14/19 18:57 Respiratory Rate 18 11/14/19 18:57 Blood Pressure 136/73 11/14/19 18:57 O2 Sat by Pulse Oximetry (%) 96 11/14/19 09:00 Constitutional: Yes: No Distress HENT: Yes: Atraumatic Neck: Yes: Supple Cardiovascular: Yes: Regular Rate and Rhythm Respiratory: Yes: CTA Bilaterally Gastrointestinal: Yes: Normal Bowel Sounds Extremities: Yes: Other (R foot cellulitis) Neurological: Yes: Alert Labs: CBC, BMP 01/29/20 21:00 11/13/19 06:00 INR, PTT INR 1.08 (0.83-1.09) 11/10/19 21:00 Problem List - Problems (1) Diabetes Assessment/Plan: CONTINUE MEDS BGMS Code(s): E11.9 - TYPE 2 DIABETES MELLITUS WITHOUT COMPLICATIONS (2) Diabetic foot infection Assessment/Plan: iv abx id consult Code(s): E11.628 - TYPE 2 DIABETES MELLITUS WITH OTHER SKIN COMPLICATIONS; L08.9 - LOCAL INFECTION OF THE SKIN AND SUBCUTANEOUS TISSUE, UNSP (3) Callus of foot Code(s): L84 - CORNS AND CALLOSITIES
[2019-11-14] MEDS: ATORVASTATIN CA 10 MG TABLET (FP) PO SCH (21:23)
[2019-11-15] MEDS ORDERED: DEXTROSE 5%-WATER - 50 ML IVPB ONE ×3 (01:26→18:08)
[2019-11-15] MEDS ORDERED: PIPERACILLIN/TAZOBACTAM 3.375 GM VIAL IVPB ONE ×3 (01:26→18:08)
[2019-11-15] MEDS: PIPERACILLIN/TAZOB 3.375 GM 3.375 GM in DEXTROSE 5%-WATER - 50 ML IVPB SCH ×3 (01:29→18:12)
[2019-11-15] MEDS: metFORMIN HCL 500 MG TABLET (FP) PO SCH ×2 (06:33→18:14)
[2019-11-15] MEDS: INSULIN SLIDING SCALE (NOVOLOG) 1 VIAL SQ SCH ×4 (06:34→22:23)
[2019-11-15] MEDS: HEPARIN NA (PORCINE) 5,000 UNITS/ML 1ML VIAL SQ SCH ×2 (09:37→22:24)
[2019-11-15] MEDS: CLOPIDOGREL BISULFATE 75 MG TABLET (FP) PO SCH (09:37)
[2019-11-15] MEDS: amLODIPine BESYLATE 10 MG TABLET (FP) PO SCH (09:38)
[2019-11-15] MEDS: POLYETHYLENE GLYCOL 3350 119 GM BTL PO SCH (09:38)
[2019-11-15] MEDS: LISINOPRIL 20 MG TABLET (FP) PO SCH (09:39)
[2019-11-15] MEDS: COLLAGENASE CLOSTRIDIUM HIST. 30 GRAMS TUBE TP SCH (09:57)
[2019-11-15 10:18] LABS: BASO % 0.9 % (0-2.0); EOS % 1.8 % (0-4.5); HEMATOCRIT 37.5 % (35.4-49); HEMOGLOBIN 12.4 GM/dL (11.7-16.9); LYMPH % 23.4 % (8-40); MCH 28.4 pg (25.7-33.7); MCHC 33.1 g/dl (32.0-35.9); MEAN CELL VOLUME 85.8 fl (80-96); MEAN PLT VOLUME 9.3 fl (7.5-11.1); MONO % 6.2 % (3.8-10.2); NEUT % 67.7 % (42.8-82.8); PLATELET COUNT 425 K/MM3 (134-434); RBC 4.37 M/mm3 (4.00-5.60); RDW 13.4 % (11.9-15.9); WHITE BLOOD COUNT 9.8 K/mm3 (4.0-10.0)
--- NOTE | 2019-11-15 12:52 | PN ---
Progress Note, Physician - Current Medication List Current Medications: Active Medications Acetaminophen (Tylenol -) 650 mg PO Q6H PRN PRN Reason: FEVER Last Admin: 11/11/19 23:15 Dose: 650 mg Amlodipine Besylate (Norvasc -) 10 mg PO DAILY [facility] Last Admin: 11/15/19 09:38 Dose: 10 mg Atorvastatin Calcium (Lipitor -) 10 mg PO HS [facility] Last Admin: 11/14/19 21:23 Dose: 10 mg Clopidogrel Bisulfate (Plavix -) 75 mg PO DAILY [facility] Last Admin: 11/15/19 09:37 Dose: 75 mg Collagenase (Santyl -) 1 applic TP DAILY [facility]; Protocol Last Admin: 11/15/19 09:57 Dose: 1 applic Heparin Sodium (Porcine) (Heparin -) 5,000 unit SQ BID [facility] Last Admin: 11/15/19 09:37 Dose: 5,000 unit Piperacillin Sod/Tazobactam (Sod 3.375 gm/ Dextrose) 50 mls @ 100 mls/hr IVPB Q8H-IV [facility]; Protocol Last Admin: 11/15/19 09:37 Dose: 100 mls/hr Insulin Aspart (Novolog Vial Sliding Scale -) 1 vial SQ ACHS [facility]; Protocol Last Admin: 11/15/19 06:34 Dose: 4 units Lisinopril (Prinivil) 20 mg PO DAILY [facility] Last Admin: 11/15/19 09:39 Dose: 20 mg Metformin HCl (Glucophage -) 1,000 mg PO BIDAC [facility] Last Admin: 11/15/19 06:33 Dose: 1,000 mg Polyethylene Glycol (Miralax (For Daily Use) -) 17 gm PO DAILY [facility] Last Admin: 11/15/19 09:38 Dose: 17 gm - Objective Vital Signs: Vital Signs Temperature 98 F 11/15/19 09:55 Pulse Rate 61 11/15/19 09:55 Respiratory Rate 18 11/15/19 09:55 Blood Pressure 119/68 11/15/19 09:55 O2 Sat by Pulse Oximetry (%) 96 11/15/19 09:00 Constitutional: Yes: No Distress HENT: Yes: Atraumatic Neck: Yes: Supple Cardiovascular: Yes: Regular Rate and Rhythm Respiratory: Yes: CTA Bilaterally Gastrointestinal: Yes: Normal Bowel Sounds Extremities: Yes: Other (R foot cellulitis) Neurological: Yes: Alert, Oriented Labs: CBC, BMP 11/14/19 06:00 11/13/19 06:00 INR, PTT INR 1.08 (0.83-1.09) 11/10/19 21:00 Problem List - Problems (1) Diabetes Assessment/Plan: CONTINUE MEDS BGMS Code(s): E11.9 - TYPE 2 DIABETES MELLITUS WITHOUT COMPLICATIONS (2) Diabetic foot infection Code(s): E11.628 - TYPE 2 DIABETES MELLITUS WITH OTHER SKIN COMPLICATIONS; L08.9 - LOCAL INFECTION OF THE SKIN AND SUBCUTANEOUS TISSUE, UNSP (3) Callus of foot Code(s): L84 - CORNS AND CALLOSITIES
--- NOTE | 2019-11-15 13:27 | PN ---
Progress Note (short form) - Note Progress Note: fuv right foot +resolved cellulitis, +granulating plantar wound right, -drainage, -mal odor, resolved cellulitis grade 2 wound sub right foot dc betadine dressing. change to santyl daily. will follow.
--- NOTE | 2019-11-15 17:07 | PN ---
Progress Note, Physician History of Present Illness: Pt is alert, afebrile. States he has pain in foot but overall controlled. No other complaints. - Current Medication List Current Medications: Active Medications Acetaminophen (Tylenol -) 650 mg PO Q6H PRN PRN Reason: FEVER Last Admin: 11/11/19 23:15 Dose: 650 mg Amlodipine Besylate (Norvasc -) 10 mg PO DAILY [facility] Last Admin: 11/15/19 09:38 Dose: 10 mg Atorvastatin Calcium (Lipitor -) 10 mg PO HS [facility] Last Admin: 11/14/19 21:23 Dose: 10 mg Clopidogrel Bisulfate (Plavix -) 75 mg PO DAILY [facility] Last Admin: 11/15/19 09:37 Dose: 75 mg Collagenase (Santyl -) 1 applic TP DAILY [facility]; Protocol Last Admin: 11/15/19 09:57 Dose: 1 applic Heparin Sodium (Porcine) (Heparin -) 5,000 unit SQ BID [facility] Last Admin: 11/15/19 09:37 Dose: 5,000 unit Piperacillin Sod/Tazobactam (Sod 3.375 gm/ Dextrose) 50 mls @ 100 mls/hr IVPB Q8H-IV [facility]; Protocol Last Admin: 11/15/19 09:37 Dose: 100 mls/hr Insulin Aspart (Novolog Vial Sliding Scale -) 1 vial SQ ACHS [facility]; Protocol Last Admin: 11/15/19 12:57 Dose: 8 units Lisinopril (Prinivil) 20 mg PO DAILY [facility] Last Admin: 11/15/19 09:39 Dose: 20 mg Metformin HCl (Glucophage -) 1,000 mg PO BIDAC [facility] Last Admin: 11/15/19 06:33 Dose: 1,000 mg Polyethylene Glycol (Miralax (For Daily Use) -) 17 gm PO DAILY [facility] Last Admin: 11/15/19 09:38 Dose: 17 gm - Objective Vital Signs: Vital Signs Temperature 98.8 F 11/15/19 14:55 Pulse Rate 80 11/15/19 14:55 Respiratory Rate 18 11/15/19 14:55 Blood Pressure 124/69 11/15/19 14:55 O2 Sat by Pulse Oximetry (%) 96 11/15/19 09:00 Constitutional: Yes: No Distress, Calm Eyes: Yes: Conjunctiva Clear Cardiovascular: Yes: Regular Rate and Rhythm Respiratory: Yes: Regular Gastrointestinal: Yes: Normal Bowel Sounds, Soft Genitourinary: Yes: WNL Wound/Incision: Yes: Dressing Dry and Intact (Rt plantar foot wound, +tender) Neurological: Yes: Alert, Oriented Labs: CBC, BMP 11/14/19 06:00 11/13/19 06:00 INR, PTT INR 1.08 (0.83-1.09) 11/10/19 21:00 Microbiology 11/12/19 18:30 Foot - Right Plantar Gram Stain - Final 11/12/19 18:30 Foot - Right Plantar Wound Culture - Final Morganella Morganii Alpha Hemolytic Streptococcus Staphylococcus Coagulase Neg 11/10/19 21:00 Blood - Peripheral Venous Blood Culture - Preliminary NO GROWTH OBTAINED AFTER 96 HOURS, INCUBATION TO CONTINUE FOR 1 DAYS. 11/10/19 21:00 Blood - Peripheral Venous Blood Culture - Preliminary NO GROWTH OBTAINED AFTER 96 HOURS, INCUBATION TO CONTINUE FOR 1 DAYS. 11/11/19 19:22 Urine - Urine Clean Catch Urine Culture - Final NO GROWTH OBTAINED - ....Imaging MRI: Report Reviewed Problem List - Problems (1) Diabetes Code(s): E11.9 - TYPE 2 DIABETES MELLITUS WITHOUT COMPLICATIONS (2) Diabetic foot infection Code(s): E11.628 - TYPE 2 DIABETES MELLITUS WITH OTHER SKIN COMPLICATIONS; L08.9 - LOCAL INFECTION OF THE SKIN AND SUBCUTANEOUS TISSUE, UNSP (3) Callus of foot Code(s): L84 - CORNS AND CALLOSITIES Assessment/Plan Rt plantar foot ulcer/abscess s/p I+D -- f/u final wound culture results -- continue IV antibiotics for now -- MRI without evidence of OM -- continue wound care -- Podiatry following -- tight control of glucose
[2019-11-15] MEDS: ATORVASTATIN CA 10 MG TABLET (FP) PO SCH (22:24)
[2019-11-16] MEDS ORDERED: DEXTROSE 5%-WATER - 50 ML IVPB ONE ×3 (01:00→17:22)
[2019-11-16] MEDS ORDERED: PIPERACILLIN/TAZOBACTAM 3.375 GM VIAL IVPB ONE ×3 (01:00→17:22)
[2019-11-16] MEDS: PIPERACILLIN/TAZOB 3.375 GM 3.375 GM in DEXTROSE 5%-WATER - 50 ML IVPB SCH ×3 (01:15→17:27)
[2019-11-16] MEDS: INSULIN SLIDING SCALE (NOVOLOG) 1 VIAL SQ SCH ×4 (06:08→21:49)
[2019-11-16] MEDS: metFORMIN HCL 500 MG TABLET (FP) PO SCH ×2 (06:09→17:26)
[2019-11-16] MEDS: HEPARIN NA (PORCINE) 5,000 UNITS/ML 1ML VIAL SQ SCH ×2 (09:05→21:48)
[2019-11-16] MEDS: POLYETHYLENE GLYCOL 3350 119 GM BTL PO SCH (09:06)
[2019-11-16] MEDS: CLOPIDOGREL BISULFATE 75 MG TABLET (FP) PO SCH (09:06)
[2019-11-16] MEDS: amLODIPine BESYLATE 10 MG TABLET (FP) PO SCH (09:06)
[2019-11-16] MEDS: LISINOPRIL 20 MG TABLET (FP) PO SCH (09:06)
[2019-11-16] MEDS: COLLAGENASE CLOSTRIDIUM HIST. 30 GRAMS TUBE TP SCH (09:15)
--- NOTE | 2019-11-16 10:23 | PN ---
Progress Note (short form) - Note Progress Note: fuv right foot. No pain. +resolved cellulitis, +granulating plantar wound right, -drainage, -mal odor, resolved cellulitis grade 2 wound sub right foot May be dc to home from podiatry standpoint. May follow up in office or wcc. Rest as per team. Santyl daily to wound. will follow.
[2019-11-16] MEDS ORDERED: INSULIN (NOVOLOG) ASPART 100 UNITS/ML 10ML VIAL ONE ×2 (13:26→20:23)
--- NOTE | 2019-11-16 16:25 | PN ---
Progress Note, Physician - Current Medication List Current Medications: Active Medications Acetaminophen (Tylenol -) 650 mg PO Q6H PRN PRN Reason: FEVER Last Admin: 11/11/19 23:15 Dose: 650 mg Amlodipine Besylate (Norvasc -) 10 mg PO DAILY [facility] Last Admin: 11/16/19 09:06 Dose: 10 mg Atorvastatin Calcium (Lipitor -) 10 mg PO HS [facility] Last Admin: 11/15/19 22:24 Dose: 10 mg Clopidogrel Bisulfate (Plavix -) 75 mg PO DAILY [facility] Last Admin: 11/16/19 09:06 Dose: 75 mg Collagenase (Santyl -) 1 applic TP DAILY [facility]; Protocol Last Admin: 11/16/19 09:15 Dose: 1 applic Heparin Sodium (Porcine) (Heparin -) 5,000 unit SQ BID [facility] Last Admin: 11/16/19 09:05 Dose: 5,000 unit Piperacillin Sod/Tazobactam (Sod 3.375 gm/ Dextrose) 50 mls @ 100 mls/hr IVPB Q8H-IV [facility]; Protocol Last Admin: 11/16/19 09:05 Dose: 100 mls/hr Insulin Aspart (Novolog Vial Sliding Scale -) 1 vial SQ ACHS [facility]; Protocol Last Admin: 11/16/19 13:33 Dose: 8 units Lisinopril (Prinivil) 20 mg PO DAILY [facility] Last Admin: 11/16/19 09:06 Dose: 20 mg Metformin HCl (Glucophage -) 1,000 mg PO BIDAC [facility] Last Admin: 11/16/19 06:09 Dose: 1,000 mg Polyethylene Glycol (Miralax (For Daily Use) -) 17 gm PO DAILY [facility] Last Admin: 11/16/19 09:06 Dose: Not Given - Objective Vital Signs: Vital Signs Temperature 97.9 F 11/16/19 13:59 Pulse Rate 79 11/16/19 13:59 Respiratory Rate 20 11/16/19 13:59 Blood Pressure 113/63 11/16/19 13:59 O2 Sat by Pulse Oximetry (%) 98 11/16/19 09:00 Constitutional: Yes: No Distress HENT: Yes: Atraumatic Neck: Yes: Supple Cardiovascular: Yes: Regular Rate and Rhythm Respiratory: Yes: CTA Bilaterally Gastrointestinal: Yes: Normal Bowel Sounds Extremities: Yes: Other (R foot infection) Neurological: Yes: Alert, Oriented Labs: CBC, BMP 11/14/19 06:00 11/13/19 06:00 INR, PTT INR 1.08 (0.83-1.09) 11/10/19 21:00 Problem List - Problems (1) Diabetes Assessment/Plan: CONTINUE MEDS BGMS Code(s): E11.9 - TYPE 2 DIABETES MELLITUS WITHOUT COMPLICATIONS (2) Diabetic foot infection Assessment/Plan: on po abx for 10 more days Code(s): E11.628 - TYPE 2 DIABETES MELLITUS WITH OTHER SKIN COMPLICATIONS; L08.9 - LOCAL INFECTION OF THE SKIN AND SUBCUTANEOUS TISSUE, UNSP (3) Callus of foot Assessment/Plan: wound care Code(s): L84 - CORNS AND CALLOSITIES
--- NOTE | 2019-11-16 17:52 | PN ---
Progress Note, Physician History of Present Illness: Pt is alert, without distress. No current pain in foot. - Current Medication List Current Medications: Active Medications Acetaminophen (Tylenol -) 650 mg PO Q6H PRN PRN Reason: FEVER Last Admin: 11/11/19 23:15 Dose: 650 mg Amlodipine Besylate (Norvasc -) 10 mg PO DAILY [facility] Last Admin: 11/16/19 09:06 Dose: 10 mg Atorvastatin Calcium (Lipitor -) 10 mg PO HS [facility] Last Admin: 11/15/19 22:24 Dose: 10 mg Clopidogrel Bisulfate (Plavix -) 75 mg PO DAILY [facility] Last Admin: 11/16/19 09:06 Dose: 75 mg Collagenase (Santyl -) 1 applic TP DAILY [facility]; Protocol Last Admin: 11/16/19 09:15 Dose: 1 applic Heparin Sodium (Porcine) (Heparin -) 5,000 unit SQ BID [facility] Last Admin: 11/16/19 09:05 Dose: 5,000 unit Piperacillin Sod/Tazobactam (Sod 3.375 gm/ Dextrose) 50 mls @ 100 mls/hr IVPB Q8H-IV [facility]; Protocol Last Admin: 11/16/19 17:27 Dose: 100 mls/hr Insulin Aspart (Novolog Vial Sliding Scale -) 1 vial SQ ACHS [facility]; Protocol Last Admin: 11/16/19 17:25 Dose: 6 units Lisinopril (Prinivil) 20 mg PO DAILY [facility] Last Admin: 11/16/19 09:06 Dose: 20 mg Metformin HCl (Glucophage -) 1,000 mg PO BIDAC [facility] Last Admin: 11/16/19 17:26 Dose: 1,000 mg Polyethylene Glycol (Miralax (For Daily Use) -) 17 gm PO DAILY [facility] Last Admin: 11/16/19 09:06 Dose: Not Given - Objective Vital Signs: Vital Signs Temperature 97.9 F 11/16/19 13:59 Pulse Rate 79 11/16/19 13:59 Respiratory Rate 20 11/16/19 13:59 Blood Pressure 113/63 11/16/19 13:59 O2 Sat by Pulse Oximetry (%) 98 11/16/19 09:00 Constitutional: Yes: No Distress, Calm Cardiovascular: Yes: Regular Rate and Rhythm Respiratory: Yes: Regular Gastrointestinal: Yes: Normal Bowel Sounds, Soft Genitourinary: Yes: WNL Wound/Incision: Yes: Dressing Dry and Intact, Other (Rt foot mild edema/erythema ) Neurological: Yes: Alert, Oriented Labs: CBC, BMP 11/14/19 06:00 11/13/19 06:00 INR, PTT INR 1.08 (0.83-1.09) 11/10/19 21:00 Microbiology 11/10/19 21:00 Blood - Peripheral Venous Blood Culture - Final NO GROWTH AFTER 5 DAYS INCUBATION 11/10/19 21:00 Blood - Peripheral Venous Blood Culture - Final NO GROWTH AFTER 5 DAYS INCUBATION 11/12/19 18:30 Foot - Right Plantar Gram Stain - Final 11/12/19 18:30 Foot - Right Plantar Wound Culture - Final Morganella Morganii Alpha Hemolytic Streptococcus Staphylococcus Coagulase Neg 11/11/19 19:22 Urine - Urine Clean Catch Urine Culture - Final NO GROWTH OBTAINED Problem List - Problems (1) Diabetes Code(s): E11.9 - TYPE 2 DIABETES MELLITUS WITHOUT COMPLICATIONS (2) Diabetic foot infection Code(s): E11.628 - TYPE 2 DIABETES MELLITUS WITH OTHER SKIN COMPLICATIONS; L08.9 - LOCAL INFECTION OF THE SKIN AND SUBCUTANEOUS TISSUE, UNSP (3) Callus of foot Code(s): L84 - CORNS AND CALLOSITIES Assessment/Plan Rt plantar foot cellulitis/ ulcer/abscess s/p I+D DM -- wound culture results noted -- will switch to Levaquin po and treat for 10 more days -- MRI neg for OM -- continue wound care -- f/u with Podiatry -- tight control of glucose If d/c home pt to return if develops fever/rash/diarrhea or worsening condition of foot
[2019-11-16] MEDS: ATORVASTATIN CA 10 MG TABLET (FP) PO SCH (21:48)
[2019-11-17] MEDS: ACETAMINOPHEN 325 MG TABLET (FP) PO PRN (01:44)
[2019-11-17] MEDS: INSULIN SLIDING SCALE (NOVOLOG) 1 VIAL SQ SCH ×3 (06:03→16:32)
[2019-11-17] MEDS: metFORMIN HCL 500 MG TABLET (FP) PO SCH ×2 (06:04→16:29)
[2019-11-17] MEDS: CLOPIDOGREL BISULFATE 75 MG TABLET (FP) PO SCH (09:13)
[2019-11-17] MEDS: POLYETHYLENE GLYCOL 3350 119 GM BTL PO SCH (09:13)
[2019-11-17] MEDS: amLODIPine BESYLATE 10 MG TABLET (FP) PO SCH (09:13)
[2019-11-17] MEDS: LISINOPRIL 20 MG TABLET (FP) PO SCH (09:13)
[2019-11-17] MEDS: HEPARIN NA (PORCINE) 5,000 UNITS/ML 1ML VIAL SQ SCH (09:14)
[2019-11-17] MEDS: COLLAGENASE CLOSTRIDIUM HIST. 30 GRAMS TUBE TP SCH (09:14)
--- NOTE | 2019-11-17 15:07 | PN ---
Progress Note, Physician History of Present Illness: stable no complaints - Current Medication List Current Medications: Active Medications Acetaminophen (Tylenol -) 650 mg PO Q6H PRN PRN Reason: FEVER Last Admin: 11/17/19 01:44 Dose: 650 mg Amlodipine Besylate (Norvasc -) 10 mg PO DAILY [facility] Last Admin: 11/17/19 09:13 Dose: 10 mg Atorvastatin Calcium (Lipitor -) 10 mg PO HS [facility] Last Admin: 11/16/19 21:48 Dose: 10 mg Clopidogrel Bisulfate (Plavix -) 75 mg PO DAILY [facility] Last Admin: 11/17/19 09:13 Dose: 75 mg Collagenase (Santyl -) 1 applic TP DAILY [facility]; Protocol Last Admin: 11/17/19 09:14 Dose: 1 applic Heparin Sodium (Porcine) (Heparin -) 5,000 unit SQ BID [facility] Insulin Aspart (Novolog Vial Sliding Scale -) 1 vial SQ ACHS [facility]; Protocol Last Admin: 11/17/19 11:21 Dose: 6 units Levofloxacin (Levaquin -) 500 mg PO DAILY@0100 [facility] Last Admin: 11/17/19 01:44 Dose: 500 mg Lisinopril (Prinivil) 20 mg PO DAILY [facility] Last Admin: 11/17/19 09:13 Dose: 20 mg Metformin HCl (Glucophage -) 1,000 mg PO BIDAC [facility] Last Admin: 11/17/19 06:04 Dose: 1,000 mg Polyethylene Glycol (Miralax (For Daily Use) -) 17 gm PO DAILY [facility] Last Admin: 11/17/19 09:13 Dose: Not Given - Objective Vital Signs: Vital Signs Temperature 98.5 F 11/17/19 09:01 Pulse Rate 77 11/17/19 09:01 Respiratory Rate 20 11/17/19 09:01 Blood Pressure 118/68 11/17/19 09:01 O2 Sat by Pulse Oximetry (%) 95 11/17/19 09:00 Constitutional: Yes: No Distress, Calm Respiratory: Yes: Regular, CTA Bilaterally Gastrointestinal: Yes: Normal Bowel Sounds, Soft Musculoskeletal: Yes: WNL Extremities: Yes: Other Wound/Incision: Yes: Dressing Dry and Intact Neurological: Yes: Alert, Oriented Psychiatric: Yes: Alert, Oriented Labs: CBC, BMP 11/14/19 06:00 11/13/19 06:00 INR, PTT INR 1.08 (0.83-1.09) 11/10/19 21:00 Assessment/Plan Problem List - Problems (1) Diabetes Code(s): E11.9 - TYPE 2 DIABETES MELLITUS WITHOUT COMPLICATIONS (2) Diabetic foot infection Code(s): E11.628 - TYPE 2 DIABETES MELLITUS WITH OTHER SKIN COMPLICATIONS; L08.9 - LOCAL INFECTION OF THE SKIN AND SUBCUTANEOUS TISSUE, UNSP (3) Callus of foot Code(s): L84 - CORNS AND CALLOSITIES r/o gangrene blister plan continue abx complete the course as advised rest as per the team wound care
[2019-11-17 15:16] VITALS: BP 124/66; PULSE 83; TEMP 98.2
--- NOTE | 2019-11-17 15:27 | PATH ---
Surgical Pathology Report Patient Name: ANCA BURNHAM Med. Rec. #: [id number] /Age/Gender: 1960 (Age: 59) / M Account: [id number] Location: [facility] MED/SURG Taken: 11/12/2019 Received: 11/14/2019 Reported: 11/17/2019 Physicians: Sandra Marie DPM Specimen(s) Received ABSCESS SKIN RIGHT FOOT Clinical History Abscess right foot Final Diagnosis FOOT, RIGHT, SKIN, INCISION AND DRAINAGE: SUPERFICIAL FRAGMENTS OF SQUAMOUS EPITHELIUM WITH HYPERKERATOSIS, PARAKERATOSIS, FOCAL INTRAEPITHELIAL MICROABSCESSES, AND ASSOCIATED ACUTE INFLAMMATORY INFILTRATE. Electronically Signed Marsha Yoon M.D. Gross Description Received in formalin, labeled with the patient's name and indicated on the requisition to be skin from the right foot, is a 6.3 x 4.5 cm diego, unoriented skin shave. The epidermal surface displays a 2.5 x 1.8 cm ulcerated lesion. Academic Support Director sections are submitted in one cassette. /11/14/2019 saudi11/14/2019
--- NOTE | 2019-11-17 17:38 | DS ---
Physical Examination Vital Signs: Vital Signs Temperature 98.2 F 11/17/19 15:14 Pulse Rate 83 11/17/19 15:14 Respiratory Rate 20 11/17/19 15:14 Blood Pressure 124/66 11/17/19 15:14 O2 Sat by Pulse Oximetry (%) 95 11/17/19 09:00 Constitutional: Yes: No Distress HENT: Yes: Atraumatic Neck: Yes: Supple Cardiovascular: Yes: Regular Rate and Rhythm Respiratory: Yes: CTA Bilaterally Gastrointestinal: Yes: Normal Bowel Sounds Extremities: Yes: Other (r FOOT IN DRESSING) Neurological: Yes: Alert, Oriented Labs: CBC, BMP 11/14/19 06:00 11/13/19 06:00 Discharge Summary Problems reviewed: Yes Reason For Visit: DIABETIC, FOOT INFECTION, LACTIC ACIDOSIS Current Active Problems Diabetes (Acute) Diabetic foot infection (Acute) Condition: Stable - Instructions Diet, Activity, Other Instructions: follow up in wound care 2-3 days Disposition: HOME - Home Medications Comprehensive Discharge Medication List: Ambulatory Orders Amlodipine Besylate 10 mg PO DAILY 11/11/19 Atorvastatin Ca [Lipitor] 10 mg PO HS 11/11/19 Clopidogrel Bisulfate [Clopidogrel] 75 mg PO DAILY 11/11/19 Lisinopril 20 mg PO DAILY 11/11/19 Metformin HCl [Glucophage] 1,000 mg PO BID 11/11/19 Sitagliptin Phosphate [Januvia -] 50 mg PO ONCE 11/11/19 levoFLOXacin [Levaquin -] 500 mg PO DAILY@0100 #9 tablet 11/17/19 de home
--- NOTE | 2019-11-17 17:38 | PN ---
Progress Note, Physician - Current Medication List Current Medications: Active Medications Acetaminophen (Tylenol -) 650 mg PO Q6H PRN PRN Reason: FEVER Last Admin: 11/17/19 01:44 Dose: 650 mg Amlodipine Besylate (Norvasc -) 10 mg PO DAILY [facility] Last Admin: 11/17/19 09:13 Dose: 10 mg Atorvastatin Calcium (Lipitor -) 10 mg PO HS [facility] Last Admin: 11/16/19 21:48 Dose: 10 mg Clopidogrel Bisulfate (Plavix -) 75 mg PO DAILY [facility] Last Admin: 11/17/19 09:13 Dose: 75 mg Collagenase (Santyl -) 1 applic TP DAILY [facility]; Protocol Last Admin: 11/17/19 09:14 Dose: 1 applic Heparin Sodium (Porcine) (Heparin -) 5,000 unit SQ BID [facility] Insulin Aspart (Novolog Vial Sliding Scale -) 1 vial SQ ACHS [facility]; Protocol Last Admin: 11/17/19 16:32 Dose: 6 units Levofloxacin (Levaquin -) 500 mg PO DAILY@0100 [facility] Last Admin: 11/17/19 01:44 Dose: 500 mg Lisinopril (Prinivil) 20 mg PO DAILY [facility] Last Admin: 11/17/19 09:13 Dose: 20 mg Metformin HCl (Glucophage -) 1,000 mg PO BIDAC [facility] Last Admin: 11/17/19 16:29 Dose: 1,000 mg Polyethylene Glycol (Miralax (For Daily Use) -) 17 gm PO DAILY [facility] Last Admin: 11/17/19 09:13 Dose: Not Given - Objective Vital Signs: Vital Signs Temperature 98.2 F 11/17/19 15:14 Pulse Rate 83 11/17/19 15:14 Respiratory Rate 20 11/17/19 15:14 Blood Pressure 124/66 11/17/19 15:14 O2 Sat by Pulse Oximetry (%) 95 11/17/19 09:00 Labs: CBC, BMP 11/14/19 06:00 11/13/19 06:00 INR, PTT INR 1.08 (0.83-1.09) 11/10/19 21:00 Problem List - Problems (1) Diabetes Code(s): E11.9 - TYPE 2 DIABETES MELLITUS WITHOUT COMPLICATIONS (2) Diabetic foot infection Code(s): E11.628 - TYPE 2 DIABETES MELLITUS WITH OTHER SKIN COMPLICATIONS; L08.9 - LOCAL INFECTION OF THE SKIN AND SUBCUTANEOUS TISSUE, UNSP (3) Callus of foot Code(s): L84 - CORNS AND CALLOSITIES
[2019-11-17] MEDS ORDERED: HEPARIN NA (PORCINE) 5,000 UNITS/ML 1ML VIAL SQ SCH (22:00)
== END 2019-11-17 18:24 | disposition home or self-care (01) | DRG 380 ==
LOC: JER 17:31 → JERBED 21:33 → J7W 11-11 15:19
PROVIDERS: ADMIT Internal Medicine; ATTEND Internal Medicine
PROC: 0Y9M3ZX Drainage of Right Foot, Percutaneous Approach, Diagnostic (ICD-10-PCS; principal; 2019-11-12)
DX: E11.621 Type 2 diabetes mellitus with foot ulcer (principal); E78.5 Hyperlipidemia, unspecified; L03.115 Cellulitis of right lower limb; L08.9 Local infection of the skin and subcutaneous tissue, unspecified; L97.519 Non-pressure chronic ulcer of other part of right foot with unspecified severity; I10 Essential (primary) hypertension
CPT/HCPCS: 36415; 71045-TC-FY; 73630-TC-RT-FY; 73718-TC-RT; 74177-TC; 76775-TC; 76856-TC; 80048; 80053; 82962; 83036; 83605; 84484; 85025; 85610; 85730; 87040; 87070; 87077; 87086; 87186; 87205; 88304-TC; 93005; 93010; 99285-25; J0131; J1644; J7030